=== PATIENT | female | born 1960 | race Caucasian/White ===

== ENCOUNTER 2017-04-22 14:03 | Emergency (ER) | payer OTHER ==
[~2017-04-22 14:03] MED LIST: ENDOCET 7.5-321 EACH PO; HYDROCHLOROTHIA25 MG PO; HYDROCODON-ACE1 EA10 PO; NEXIUM20 MG PO
[2017-04-22] MEDS ORDERED: RANITIDINE HCL150 MG PO (14:17)
[2017-04-22] MEDS ORDERED: LOSARTAN-HCTZ1 EAC1 PO (14:17)
[2017-04-22] MEDS ORDERED: BUPROPION XL150 MG PO (14:18)
[2017-04-22] MEDS ORDERED: NORCO 5-325 TA1 EACH PO (15:56)
[2017-04-22] MEDS ORDERED: CYCLOBENZAPRINE5 MG PO (15:56)
== END 2017-04-22 16:10 | disposition home or self-care (01) ==
LOC: ED 14:03
DX: M54.32 Sciatica, left side (principal); I10 Essential (primary) hypertension; F17.200 Nicotine dependence, unspecified, uncomplicated; Z90.710 Acquired absence of both cervix and uterus; Z79.899 Other long term (current) drug therapy
CPT/HCPCS: 72100; 99283

== ENCOUNTER 2017-07-17 03:05 | Emergency (ER) | payer OTHER ==
[~2017-07-17] VITALS: Ht 170.2 cm; Wt 92.5 kg
[~2017-07-17 03:05] MED LIST changes: +BUPROPION XL150 MG PO; +CYCLOBENZAPRINE5 MG PO; +LOSARTAN-HCTZ1 EAC1 PO; +NORCO 5-325 TA1 EACH PO; +RANITIDINE HCL150 MG PO
[2017-07-17] MEDS ORDERED: GABAPENTIN300 MG PO (03:20)
[2017-07-17] MEDS ORDERED: OMEPRAZOLE20 MG PO (03:21)
[2017-07-17] MEDS ORDERED: MELOXICAM7.5 MG PO (03:22)
== END 2017-07-17 04:10 | disposition home or self-care (01) ==
LOC: ED 03:05
DX: M54.5 Low back pain (principal); G89.29 Other chronic pain; I10 Essential (primary) hypertension; F17.200 Nicotine dependence, unspecified, uncomplicated; Z90.710 Acquired absence of both cervix and uterus; Z79.899 Other long term (current) drug therapy
CPT/HCPCS: 96372; 99282; J1885

== ENCOUNTER 2022-04-27 09:32 | Day surgery (SDC) | payer OTHER ==
[~2022-04-27] VITALS: Ht 172.7 cm; Wt 85.0 kg
[~2022-04-27 09:32] MED LIST changes: +GABAPENTIN300 MG PO; +MELOXICAM7.5 MG PO; +OMEPRAZOLE20 MG PO
--- NOTE | 2022-04-28 12:17 | OR ---
[facility] [address] [facility] [place], [place] [address] Signed DATE OF OPERATION: 04/27/2022 SURGEON: Jose Wilde MD PREOPERATIVE DIAGNOSIS: Right superior pole 2.2 cm thyroid category IV nodule of thyroid. POSTOPERATIVE DIAGNOSIS: Right superior pole 2.2 cm thyroid category IV nodule of thyroid. PROCEDURE: Ultrasound-guided fine-needle aspiration biopsy of the right upper thyroid lobe nodule. ANESTHESIA: A 0.25% Marcaine with epinephrine. DESCRIPTION OF PROCEDURE: In the Day Surgery area with the patient in a supine position with a shoulder roll in good neck extension, the neck was evaluated with ultrasound device showing the offending lesion in question in the upper aspect of the right thyroid gland. It appeared not entirely solid. The neck was prepared with chlorhexidine solution and draped sterilely. A 1% lidocaine was injected with 0.25% Marcaine was injected. Under direct visualization, with a control-tip syringe and a 22-gauge needle, multiple passes through the offending nodule were undertaken. Scant blood was noted. The specimen was offloaded into CytoLyt solution. With a separate syringe, two additional similar such biopsies were undertaken using the lateral approach and direct anterior approach. Photographs were taken confirming the needle into the lesion itself. She tolerated the procedure well. Band-Aid was applied. MD LILLI Smalls/CONRADL /[id number] Electronically Signed By: JOSE WILDE MD 04/28/22 1217 PATIENT NAME: TEENA YORK OPERATIVE REPORT DATE OF : 58 REPORT #: [id number] PHYSICIAN: JOSE WILDE MD PCP: SHAR TERRY REPORT IS CONFIDENTIAL AND NOT TO BE RELEASED WITHOUT AUTHORIZATION [facility] [address] [place] [id number] Signed cc: CARIN Ruiz Copies: SHAR TERRY ~ Electronically Signed By: JOSE WILDE MD 04/28/22 1217 PATIENT NAME: TEENA YORK OPERATIVE REPORT DATE OF : 58 REPORT #: [id number] PHYSICIAN: JOSE WILDE MD PCP: SHAR TERRY REPORT IS CONFIDENTIAL AND NOT TO BE RELEASED WITHOUT AUTHORIZATION
== END 2022-04-27 18:00 | disposition home or self-care (01) ==
LOC: DS 09:32 → OPS 09:32 → DS 11:30 → EDSTATUS 11:30 → OPS 11:30
PROVIDERS: ATTEND Surgery
PROC: 0GBH4ZX Excision of Right Thyroid Gland Lobe, Percutaneous Endoscopic Approach, Diagnostic (ICD-10-PCS; principal; 2022-04-27)
DX: E04.1 Nontoxic single thyroid nodule (principal); K21.9 Gastro-esophageal reflux disease without esophagitis; I10 Essential (primary) hypertension; G89.29 Other chronic pain; M54.50 Low back pain, unspecified; E78.5 Hyperlipidemia, unspecified; Z88.8 Allergy status to other drugs, medicaments and biological substances

== ENCOUNTER 2025-07-01 06:40 | Observation (INO) | payer OTHER ==
[~2025-07-01] VITALS: Ht 172.7 cm; Wt 91.0 kg
[2025-07-01] VITALS (8 sets, daily range): BP systolic 129–170; BP diastolic 62–79
[~2025-07-01 06:40] MED LIST changes: +AMITRIPTYLINE150 MG PO; +AVAPRO75 MG PO; +BAYER CHEWABLE81 MG PO; -BUPROPION XL150 MG PO; +BUPROPION XL300 MG PO; +CYCLOBENZAPRINE10 MG PO; +FLORAJEN ACIDO1 EACH PO; +FLUTICASONE PR50 MCG NAS; +HYDRALAZINE HCL25 MG PO; +HYDROCHLOROTH12.5 MG PO; +IRBESARTAN75 MG PO; +LACTATED RINGER'S 1,000 ML IV SCH; +LIPITOR80 MG PO; +MOUNJARO15 MG/0.5 SUB-Q; +OMEPRAZOLE40 MG PO; +OSTERA TABLET1 EACH PO; +PAXIL10 MG PO; +RAMELTEON8 MG PO; +VITAMIN D3125 MC2 PO; +WOMEN'S 50 PLU1 EACH PO
[2025-07-01] MEDS ORDERED: LIDOCAINE HCL 1% 5 ML SDV INJ ONE (07:00)
[2025-07-01] MEDS ORDERED: IBLOOD GLUCOSE TEST STRIP 1 EA TEST VI PRN ×2 (07:00→09:30)
[2025-07-01] MEDS ORDERED: CEFAZOLIN SODIUM 2 GM in SODIUM CHLORIDE 0.9% 100 ML IV SCH (07:00)
[2025-07-01] MEDS ORDERED: IRBESARTAN300 MG PO (07:01)
[2025-07-01] MEDS ORDERED: KLOR-CON M1515 MEQ PO (07:03)
[2025-07-01] MEDS ORDERED: ROCURONIUM BROMIDE 50 MG/5 ML SYR ONE ×2 (07:56→10:01)
[2025-07-01] MEDS ORDERED: LIDOCAINE HCL 2% 5 ML SDV ONE (07:56)
[2025-07-01] MEDS ORDERED: fentaNYL citrate 100 MCG/2 ML VIAL ONE (07:56)
[2025-07-01] MEDS ORDERED: SEVOFLURANE 250 ML BTL INH ONE (07:57)
[2025-07-01] MEDS ORDERED: DEXAMETHASONE SOD PHOS 4 MG/ML VIAL ONE (08:02)
[2025-07-01] MEDS ORDERED: ACETAMINOPHEN 1,000 MG/100 ML VIAL ONE (09:16)
[2025-07-01] MEDS ORDERED: fentaNYL citrate 50 MCG/ML SDV IV PRN (09:30)
[2025-07-01] MEDS ORDERED: HYDROmorphone HCL 1 MG/ML SYR IV PRN (09:30)
[2025-07-01] MEDS ORDERED: METOCLOPRAMIDE HCL 10 MG/2 ML SDV IV PRN (09:30)
[2025-07-01] MEDS ORDERED: NALOXONE HCL 0.4 MG SYR IV PRN (09:30)
[2025-07-01] MEDS ORDERED: SUGAMMADEX SODIUM 200 MG/2 ML ML ONE (10:35)
--- NOTE | 2025-07-01 11:10 | NUR ---
07/01/25 1110 Dejuan,Lona 1056 PT ARRIVED TO PACU ON 6L VIA MASK, PT ASLEEP AND SNORING NOTED. RESP EVEN AND UNLABORED WITH ORAL AIRWAY IN PLACE. 1106 PT WAKES TO TACTILE STIMULI AND ORAL AIRWAY REMOVED. PT NODS "YES" TO PAIN. O2 MASK REMOVED. 1110 PT REPORTS 8/10 PAIN AND PT RESTING WITH EYES CLOSED AND O2 SAT LOW 90S.
[2025-07-01] MEDS ORDERED: FAMOTIDINE 20 MG/ 2 ML VIAL IV SCH (11:25)
[2025-07-01] MEDS ORDERED: buPROPion HCL XL 300 MG TAB.XL.24H PO SCH (11:26)
[2025-07-01] MEDS ORDERED: LEVOTHYROXINE SODIUM 150 MCG TAB PO SCH (11:29)
[2025-07-01] MEDS ORDERED: PROCHLORPERAZINE EDISYLATE 10 MG/2 ML VIAL IV PRN (11:30)
[2025-07-01] MEDS ORDERED: IBLOOD GLUCOSE TEST STRIP 1 EA TEST XX PRN (11:30)
[2025-07-01] MEDS ORDERED: DEXTROSE 5% 1,000 ML IV PRN (11:30)
[2025-07-01] MEDS ORDERED: ACETAMINOPHEN 500 MG TAB PO PRN (11:30)
[2025-07-01] MEDS ORDERED: GLUCAGON,HUMAN RECOMBINANT 1 MG/ML VIAL SUB-Q PRN (11:30)
[2025-07-01] MEDS ORDERED: CALCIUM CARBONATE 500 MG CHEW PO PRN (11:30)
[2025-07-01] MEDS ORDERED: DEXTROSE 50% 50 ML SYR IV PRN ×2 (11:30)
[2025-07-01] MEDS ORDERED: MORPHINE SULFATE 10 MG/ML VIAL IV PRN (11:30)
[2025-07-01] MEDS ORDERED: HYDROCODONE/ACETA 5/325 TAB PO PRN (11:30)
[2025-07-01] MEDS ORDERED: LACTATED RINGER'S 1,000 ML IV SCH (11:30)
[2025-07-01] MEDS ORDERED: NICOTINE 21 MG/24 HR 1 EA TDSY TD SCH (11:45)
[2025-07-01] MEDS ORDERED: KETOROLAC TROMETHAMINE 15 MG/ML VIAL ONE (12:12)
[2025-07-01] MEDS ORDERED: KETOROLAC TROMETHAMINE 15 MG/ML VIAL IV ONE (12:15)
--- NOTE | 2025-07-01 12:30 | NUR ---
PT TO ROOM FROM PACU VIA CHAYITO PRABHAKAR. REPORT RECEIVED. PT HAS ACTICOAT DRSG TO THROAT CDI. HOB GREATER THAN 30 DEGREES, TRACH KIT AT BEDSIDE. PT INSTRUCTED TO INFORM NURSE IF SHE FEELS SOB OR TIGHTNESS IN HER THROAT. AT BEDSIDE AND CALL LIGHT WITHIN REACH.
--- NOTE | 2025-07-01 13:41 | NUR ---
PT RESTING IN BED WITH IN ROOM. PT HAS ICE TO NECK, STATES PAIN TO NECK IS 2/10 AND IS TOLERABLE AT THIS TIME. CPOX ON, SCDS ON. CALL LIGHT WITHIN REACH. NO REQUESTS AT THIS TIME.
[2025-07-01] MEDS ORDERED: HYDROCODON-ACE1 EA10 PO (14:08)
--- NOTE | 2025-07-01 14:32 | NUR ---
In with pt for hourly VS. Pt is A&O, visiting with a family friend. VS stable. Pt states she is not having any nausea and has not yet attempted any fluids aside from water. Pt provided with broth and jello, iced water, and a cup of ice. She reports her pain is 6 out of 10 and her baseline is 7 out of 10. Notified her Primary RN, Mona.
[2025-07-01] MEDS ORDERED: FLORAJEN ACIDO1 EACH PO (15:19)
--- NOTE | 2025-07-01 15:20 | NUR ---
MED REC COMPLETE
--- NOTE | 2025-07-01 15:23 | NUR ---
PT RESTING IN BED VISITING [facility] VISITOR. DISCHARGE PLANNING ALSO IN TO VISIT PT. PAIN MEDS GIVEN REQUESTED. PT HAS DRSG TO NECK INTACT WITH SCANT SANGUANOUS DRAINAGE ON R) SIDE. PT HAS ICE TO NECK. CALL LIGHT WITHIN REACH.
--- NOTE | 2025-07-01 15:33 | NUR ---
INTO SEE PATIENT. PATIENT LIVES WITH AT HOME. 3 STEPS INTO THE HOME. USES A CANE AND BACK BRACE. DOES DRIVE BUT DOES MOST OF THE DRIVING. NO OXYGEN OR CPAP. DENIES DIFFCULTY PAYING UTLIITIES OR OBTAINING FOOD. PATIENT TO GO HOME WITH WHEN MEDICALLY CLEARED FOR DISCHARGE.
--- NOTE | 2025-07-01 16:51 | NUR ---
PT HAS SOME SLIGHT OOZING (SANGUANOUS) OUT OF SIDE OF HER OPSITE THAT IS NOT SEALED TO NECK ON THE RIGHT SIDE. SECOND OPSITE APPLIED TO SEAL. PT STATES PAIN IS TOLERABLE AT THIS TIME. CALL LIGHT WITHIN REACH. ICE REAPPLIED TO NECK.
--- NOTE | 2025-07-01 17:51 | NUR ---
PT'S DRSG HAS STOPPED OOZING. THERE IS A SM AMT OF SANG DRAINAGE TO LOWER RIGHT CORNER OF DRSG. PT HAS ICE ON. CALL LIGHT WITHIN REACH.
--- NOTE | 2025-07-01 18:15 | NUR ---
DR WILDE CALLED PER PT REQUEST TO SEE IF SHE CAN TURN HER SPINAL STIMULATOR ON. DR WILDE OK'D AND NURSE NOTIFY DONE.
--- NOTE | 2025-07-01 19:20 | NUR ---
REPORT RECEIVED FROM VALENTINO PRABHAKAR. pt C/O 05/23 PAIN. THIS RN MADE PLAN WITH pt TO ADMINISTER PRN PAIN MEDS WHEN REPORT WAS DONE. pt AGREED. BOARD UPDATED. SECOND SKIN CHECK DONE WITH VALENTINO PRABHAKAR. pt BANDAGE SATURATED. VALENTINO CALLED DR WILDE. DR WILDE STATED HE WAS COMING TO THE .
--- NOTE | 2025-07-01 19:30 | NUR ---
pt C/O 06/23 PAIN. PRN PAIN MEDS ADMINISTERED. DR WILDE IN . DR WILDE REMOVED DRESSING ON pt NECK AND STATED IT CAN REMAIN OFF. DR WILDE STATED HE IS NOT CONCERNED ABOUT THE DRIANAGE AND THAT WE'LL KEEP MONITORING THE WOUND FOR SWELLING. DR WILDE CLEANED WOUND WITH 4X4 GAUZE. pt ENCOURAGED TO WALK. pt DENIES ANY OTHER NEEDS AT THIS TIME. CALL LIGHT WITHIN REACH.
--- NOTE | 2025-07-01 20:30 | NUR ---
ASSESSMENT AND VITAL SIGNS DONE. BG CHECKED WITH A RESULTS OF 137. NO SS INSULIN ADMINISTERED. pt C/O 05/23 PAIN. PRN PAIN MEDS ADMINISTERED. IV ASSESSED, WNL. SCHEDULED MEDS ADMINISTERED. SCD'S ON. FRESH ICE PACK GIVEN. pt NECK STILL LEAKING SS FLUID. CPOX ON. NO SWELLING NOTED. pt DENIES ANY OTHER NEEDS AT THIS TIME. ICE WATER REFRESHED.
[2025-07-01] MEDS ORDERED: AMITRIPTYLINE HCL 100 MG TAB PO SCH (21:00)
[2025-07-01] MEDS ORDERED: AMITRIPTYLINE HCL 75 MG TABLET PO SCH (21:00)
--- NOTE | 2025-07-01 22:00 | NUR ---
IN TO ASSESS pt PAIN. pt C/O 05/23 PAIN. PRN PAIN MEDS ADMINISTERED. pt GOT UP TO WALK A LAP AROUND MED/SURG. WHEN pt GOT BACK TO THE RM pt USED THE BR AND GOT BACK TO BED. SCD'S ON. ICE PACK REFRESHED. NEW GOWN PUT ON pt. NECK STILL LEAKING SS FLUID NO SWELLING NOTED. pt DENIES ANY OTHER NEEDS AT THIS TIME. CALL LIGHT WITHIN REACH.
[2025-07-02 01:17] VITALS: BP 155/80
--- NOTE | 2025-07-02 01:18 | NUR ---
PROGRAM REVIEW DIRECTOR OBTAINED VITALS AND I&O. PT STATES NO NEEDS AT THIS TIME. CALL LIGHT WITHIN REACH.
--- NOTE | 2025-07-02 03:29 | NUR ---
pt RESTING IN THE BED WITH EYES CLOSED. NEW ICE PACK ON NECK. INCISION CDI. CPOX ON. pt DENIES ANY OTHER NEEDS AT THIS TIME. CALL LIGHT WITHIN REACH.
[2025-07-02 05:35] VITALS: BP 175/75
--- NOTE | 2025-07-02 05:35 | NUR ---
VENEER JOINTER RETURNER OBTAINED VITALS AND I&O. PT REQUESTING PAIN MEDS. RN NOTIFED. PT STATES NO FURTHER NEEDS AT THIS TIME. CALL LIGHT WITHIN REACH.
--- NOTE | 2025-07-02 06:35 | NUR ---
in rm to administer PT scheduled med. PT c/o 05/23 pain. prn pain meds administered. PT denies any other needs at this time. no swelling noted at this time. call light within reach.
--- NOTE | 2025-07-02 07:41 | NUR ---
Patient resting in bed, respirations non labored, sp02 96% on room air, per cpox. Notable steri strips to surgical site (anterior neck), no drainaged. Patient has no distress, hob elevated. Emergency trach kit at bedside.
--- NOTE | 2025-07-02 08:00 | NUR ---
Blood sugar 78 this morning per bedside reading. Juice and snack provided to patient, she is tolerating both well. Patient is alert and oriented x4. Will check bs again here shortly. Patient reports she slept well, no acute needs.
[2025-07-02] MEDS ORDERED: FAMOTIDINE 20 MG TAB PO SCH (09:00)
--- NOTE | 2025-07-02 09:11 | NUR ---
Patient ambulated in hallway x1 lap, pt tolerated well.
[2025-07-02 09:49] VITALS: BP 158/76
--- NOTE | 2025-07-02 10:09 | NUR ---
DAX from Dr. Cardona for one time dose of toradol 30mg iv.
[2025-07-02] MEDS ORDERED: KETOROLAC TROMETHAMINE 30 MG/ML VIAL IV ONE (10:15)
--- NOTE | 2025-07-02 10:20 | NUR ---
Patient reports she is unable to take toradol d/t "Severe stomach upset". Admin morphine 4mg iv at this time for reported 9/10 surgical site pain.
[2025-07-02 10:30] VITALS: BP 158/76
--- NOTE | 2025-07-02 11:14 | NUR ---
PATIENT IN BED AT THIS TIME. BROADCAST JOURNALIST ASSISTED PATIENT TO BATHROOM AND THEN BACK TO BED. CALL LIGHT WITHIN REACH NO FRUTHER NEEDS.
--- NOTE | 2025-07-02 13:17 | NUR ---
UR CLINICAL REVIEW: GLORIA, MEETS FOR THYROIDECTOMY, OBS STAY THYROIDECTOMY, IV FLUIDS, IV ANALGESICS, TREND LABS [facility] [employer] [facility] 07/02/25 @ 1128 ORDER MATCHES REG AUTH PENDING, WILL SEND CLINICALS IF REQUESTED PLAN TO DC TO HOME WHEN MEDICALLY READY 07/07/2025
[2025-07-02] MEDS ORDERED: NICOTINE1 EAC2 TD (13:41)
[2025-07-02] MEDS ORDERED: ACETAMINOPHEN500 MG PO (13:42)
[2025-07-02] MEDS ORDERED: HYDROCODON-ACE1 EA10 PO (13:42)
[2025-07-02] MEDS ORDERED: SYNTHROID150 MCG PO (13:43)
[2025-07-02 14:00] VITALS: BP 155/74
--- NOTE | 2025-07-02 14:05 | NUR ---
ADMIN TWO TABS NORCO 5/325MG PO FOR REPORTS OF 8/10 INCISIONAL PAIN.
--- NOTE | 2025-07-02 15:45 | NUR ---
PATIENT DID HER AM CARE THIS MORING. WE DID PLAN ON DOING A BED BATH BUT WHEN I WENT INTO HER ROOM PATIENT WAS ALREADY DRESSED AND READY TO BE DISCHARGE.
--- NOTE | 2025-07-06 16:41 | PATH ---
[facility] [place] [facility] [address] [place], [place] [address] Signed SPECIMEN(S): A LEFT THYROID LOBE SPECIMEN(S): B RIGHT THYROID LOBE SPECIMEN SOURCE: A. LEFT THYROID LOBE B. RIGHT THYROID LOBE CLINICAL HISTORY: Thyroid nodules. FINAL PATHOLOGIC DIAGNOSIS: A. Left thyroid lobe: - Nodular goiter. - Negative for evidence of malignancy. B. Right thyroid lobe: - Nodular goiter. COMMENT: As part of [facility] Quality Improvement Program, this case was reviewed by another member of our pathology staff. JVR:BB:aishwarya MICROSCOPIC EXAMINATION: Histologic sections of all submitted blocks are examined by light microscopy. These findings, together with the gross examination, support the pathologic diagnosis. GROSS DESCRIPTION: A. The specimen, labeled and designated "Gama Monsivais, " and designated on the requisition "left thyroid lobe," is received in formalin and consists of 13 g unoriented thyroid lobe that is 4.4 x 2.7 x 2.5 cm. The external surface is violaceous and smooth. No parathyroid or lymph node tissue is grossly identified. One area of roughening is present and is grossly consistent with the isthmic margin. This surface is inked red and the remainder of the specimen is inked blue. The tissue is serially sectioned revealing multiple pink-red gelatinous nodules that measure up to 2.5 x 2.2 x 2.2 cm. No uninvolved thyroid is grossly identified. The specimen is entirely submitted in cassettes A1-A10. B. The specimen, labeled and designated "Loi J, " and designated on the requisition "right thyroid lobe," is received in formalin and consists of two PATIENT NAME: TEENA MONSIVAIS PATHOLOGY DATE OF : 58 REPORT #: [id number] PHYSICIAN: JOSE BURNETT PCP: BOSSMAN ARRINGTON MD REPORT IS CONFIDENTIAL AND NOT TO BE RELEASED WITHOUT AUTHORIZATION [facility] [address] [place], [place] [address] Signed portions of thyroid parenchyma the have a combined weight of 4 g and measure 1.6 x 0.9 x 0.6 cm and 3.2 x 1.9 x 1.8 cm. The tissue fragments are deep red and rubbery. No parathyroid or lymph node tissue is grossly identified. The tissue is arbitrarily inked and sectioned revealing jones-red rubbery thyroid parenchyma. The specimen is entirely submitted in cassettes B1-B5. FB (under the direct supervision of a pathologist) The Gross Description was prepared using a voice recognition system. The report was reviewed for accuracy; however, sound-alike word errors, addition and/or deletions may occur. If there is any question about this report, please contact Client Services. PERFORMING LABORATORY: Technical component was performed by [facility], [address] [place] [id number] (CLIA# [id number]). Professional interpretation was performed by [facility], [address] [place] [id number] (CLIA#: [id number]). Diagnostician: Willis Brown MD Pathologist Electronically Signed 07/06/2025 Copies: ~ PATIENT NAME: TEENA MONSIVAIS PATHOLOGY DATE OF : 58 REPORT #: [id number] PHYSICIAN: JOSE PATHOLOGY PCP: BOSSMAN ARRINGTON MD REPORT IS CONFIDENTIAL AND NOT TO BE RELEASED WITHOUT AUTHORIZATION
--- NOTE | 2025-07-07 16:35 | OR ---
[facility] [address] [place], [place] [address] Signed DATE OF OPERATION: 07/01/2025 SURGEON: Jose Wilde MD PREOPERATIVE DIAGNOSES: Left side 3.1 cm TIRADS category 3, Garretson classification 3 thyroid nodule with left and right smaller nodules. POSTOPERATIVE DIAGNOSES: Left side 3.1 cm TIRADS category 3, Garretson classification 3 thyroid nodule with left and right smaller nodules. PROCEDURE: Total thyroidectomy. ANESTHESIA: General endotracheal; Luis Felipe CRNA. INDICATION: This 64-year-old woman is a patient of Dr. Raiza Arrington, who underwent a CT scan of the head and neck for other reasons and was found to have a nodule in the left thyroid. Small lung nodules were noted on the CT scan of the chest, which were considered unlikely to be malignant. A 2.3 cm nodule of the left lobe prompted ultrasound evaluation showing the right-sided nodule 7.6 mm TIRADS 3, a 7.9 TIRADS 3 nodule and in the left lobe the largest nodule 3.1 cm and another 1.7 cm. A 2.3 cm mixed cystic solid nodule also TIRADS 3 was noted. The patient underwent ultrasound-guided fine-needle aspiration biopsy by and was found to have a Garretson category 3 finding. The predicted possibility of malignancy in this particular nodule in this particular situation is approximately 10% to 25% The patient does wish to have left thyroid lobectomy, but also insists on completion thyroidectomy as she "does not want to have to come back someday" as regard to the smaller nodules. I have advised her quite carefully as Dr. Arrington apparently that she will require lifelong thyroid replacement therapy. She is fully aware of this and despite all of this, wishes to proceed with total thyroidectomy. The risk of bleeding, infection, recurrent laryngeal nerve injury, external laryngeal nerve injury, hypoparathyroidism, and so forth were all reviewed in detail. She understands as does her and they wished to proceed in this way. FINDINGS: Electronically Signed By: JOSE WILDE MD 07/07/25 1635 PATIENT NAME: TEENA YORK OPERATIVE REPORT DATE OF : 58 REPORT #: [id number] PHYSICIAN: JOSE WILDE MD PCP: RAIZA ARRINGTON MD REPORT IS CONFIDENTIAL AND NOT TO BE RELEASED WITHOUT AUTHORIZATION [facility] [address] [place], [place] [address] Signed Left thyroid lobe did have a soft nodule anteriorly, which was about 3.1 cm and another smaller nodule inferiorly. The thyroid itself was soft and spongy and absolutely not worrisome for malignancy particularly. The right thyroid lobe was surprisingly small, but was multicystic and with a colloid nodule as well. Total thyroidectomy was accomplished. There was no evidence of excised parathyroid tissue on the left and a small area of tissue could not be discerned as parathyroid versus colloid from a right thyroid cyst. Recurrent laryngeal nerve was unharmed so far as can be told. DESCRIPTION OF PROCEDURE: The patient was brought to the operating room, given a general endotracheal anesthetic. A Rodríguez catheter was placed. Preoperative antibiotic Ancef was given. Heparin was not administered and sequential compression device stockings were used. The arms were placed at the side and a shoulder roll was placed to allow for mild neck extension. A rere lounge position was maintained. The anterior neck and shoulder area was prepared with a chlorhexidine solution and draped sterilely. A natural skin crease was identified and appropriate for incision extending from the medial heads of the sternocleidomastoid muscle. Dissection was carried through the dermis with sharp dissection and electrocautery for the subcutaneous tissue in the platysmal layer. Superior and inferior flaps were developed using blunt and electrocautery dissection. Gelpi retractors were placed. The midline fascia was incised, elevating the strap muscles away from the underlying trachea. Dissection was begun first on the left side with approach from the right side (surgeon ). Sharp dissection was used to elevate the sternohyoid and sternothyroid muscles away from the underlying thyroid. Using sharp and blunt dissection, the soft and spongy thyroid was noted with a soft nodule and no evidence of worrisome findings for malignancy. Lateral attachments were dissected with sharp dissection rolling the thyroid towards the midline. The superior pole had multiple small branches which were individually ligated and divided with use of 4-0 silk ties. Similar dissection was taken inferiorly. The thyroid was rolled towards the midline and in the extracapsular technique of Miranda, the posterior elements were allowed to retain with the karuk peritracheal space. Small vessels were continued to be secured with 4-0 silk ties and divided. Ultimately, the ligament of Baum was transected using sharp and minimal cautery technique. As the isthmus connecting to the right lobe was quite atretic, the left lobe was sent independently for permanent pathology. Inspection of the left peritracheal space showed no untoward bleeding or other issues. This was irrigated with saline and packed with gauze. Position change to the left side of the table was undertaken and with similar technique, the right thyroid lobe freed from the overlying strap muscles. Quite notably, the right thyroid lobe was surprisingly small and essentially atretic, though it had multiple nodular changes within it. With similar technique as to left side, the vascular structures were secured rolling the small right thyroid lobe towards the midline and transecting it at the ligament of Baum as well. The recurrent nerve on the right was Electronically Signed By: JOSE WILDE MD 07/07/25 4522 PATIENT NAME: TEENA YORK OPERATIVE REPORT DATE OF : 58 REPORT #: [id number] PHYSICIAN: JOSE WILDE MD PCP: RAIZA ARRINGTON MD REPORT IS CONFIDENTIAL AND NOT TO BE RELEASED WITHOUT AUTHORIZATION [facility] [address] [place], [place] [address] Signed identified. A small nodule associated with the thyroid on the right may have represented colloid extruded from a nodule versus parathyroid tissue was not clear. Irrigation was undertaken on the right side showing no sign of bleeding. The left side was re-examined and found to be hemostatic. Jarrell hemostatic agent was applied to the left and right peritracheal spaces and plans made for closure. Midline strap muscles were reapproximated with interrupted 2-0 Vicryl, platysmal layer reapproximated similarly and running subcuticular 4-0 Vicryl was used for the skin. Steri-Strips were applied as was an Acticoat dressing. The patient tolerated the procedure well, was extubated without problem showing no sign of airway compromise or other issue. Blood loss was less than 20 mL. Sponge, needle, and instrument counts were reported as correct x3. MD LILLI Smalls/INGRIS /[id number] cc: Raiza Arrington MD Copies: ~ Electronically Signed By: JOSE WILDE MD 07/07/25 1635 PATIENT NAME: TEENA YORK OPERATIVE REPORT DATE OF : 58 REPORT #: [id number] PHYSICIAN: JOSE WILDE MD PCP: RAIZA ARRINGTON MD REPORT IS CONFIDENTIAL AND NOT TO BE RELEASED WITHOUT AUTHORIZATION
== END 2025-07-02 14:40 | disposition home or self-care (01) ==
LOC: DS 06:40 → MS 11:28 → DS 11:28 → MS 07-02 14:40
PROVIDERS: ADMIT Surgery; ATTEND Surgery
PROC: 0GTK0ZZ Resection of Thyroid Gland, Open Approach (ICD-10-PCS; principal; 2025-07-01 08:30)
DX: E04.2 Nontoxic multinodular goiter (principal); E78.5 Hyperlipidemia, unspecified; I10 Essential (primary) hypertension; K21.9 Gastro-esophageal reflux disease without esophagitis; F17.210 Nicotine dependence, cigarettes, uncomplicated; Z88.8 Allergy status to other drugs, medicaments and biological substances; Z79.899 Other long term (current) drug therapy
CPT/HCPCS: 00320; 36415; 82310; 84132; 94762; 96374; 96375; 96376; A9270; G0378; J0131; J0360; J0688; J1100; J1171; J1885; J2003; J2270; J2405; J2704; J3010; J3490; J7121